=== PATIENT | female | born 1950 | race Caucasian/White ===

== ENCOUNTER 2024-06-18 15:00 | Inpatient (IN) | payer MEDICARE, OTHER ==
[~2024-06-18] VITALS: Ht 152.4 cm; Wt 59.4 kg
[2024-06-18] MEDS ORDERED: MEMA10TA PO (15:27)
[2024-06-18] MEDS ORDERED: DONE10TA11 PO (15:27)
[2024-06-18] MEDS ORDERED: ROSU10TA2 PO (15:27)
[2024-06-18 15:28] LABS: BASOPHILS # (AUTO) 0.1 K/UL (0.0-0.2); BASOPHILS % (AUTO) 0.9 % (0.0-2.0); EOSINOPHILS # (AUTO) 0.3 K/uL (0.0-0.7); EOSINOPHILS % (AUTO) 3.3 % (0.0-7.0); HEMOGLOBIN 14.5 g/dL (10.9-14.3); LYMPHOCYTES # (AUTO) 2.5 K/uL (0.8-4.8); LYMPHOCYTES % (AUTO) 25.9 % (20.5-51.5); MEAN CORPUSCULAR HEMOGLOBIN 30.9 uug (24.7-32.8); MEAN CORPUSCULAR HGB CONC 33 g/dL (32.3-35.6); MONOCYTES # (AUTO) 0.9 K/uL (0.1-1.30); MONOCYTES % (AUTO) 8.9 % (0.0-11.0); NEUTROPHILS # (AUTO) 5.9 K/uL (1.8-8.9); PLATELET COUNT (AUTO) 205 K/uL (179-408); RED BLOOD CELL COUNT(AUTO) 4.68 MIL/uL (3.63-4.92); WHITE BLOOD COUNT (AUTO) 9.6 K/uL (3.8-11.8)
[2024-06-18 15:51] LABS: ETHANOL < 3 MG/DL (0-10)
[2024-06-18 15:56] LABS: *BLOOD, URINE NEGATIVE (NEGATIVE); *CLARITY,URINE CLEAR (CLEAR); *COLOR,URINE YELLOW (YELLOW); *KETONES,URINE TRACE (NEGATIVE); *PROTEIN,URINE TRACE (NEGATIVE); *UROBILINOGEN,URINE 0.2 E.U./dl (NORMAL); LEUKOCYTE ESTERASE ,URINE TRACE (NEGATIVE); NITRITE, URINE NEGATIVE (NEGATIVE); PH,URINE 5.5 (5.0-8.0); UGLUCOSE NEGATIVE (NEGATIVE)
[2024-06-18 16:00] LABS: DIFFERENTIAL COMMENT 1
[2024-06-18 16:01] LABS: *BILIRUBIN,URIN 1+ (NEGATIVE)
[2024-06-18 16:05] LABS: ALANINE AMINOTRANSFERASE 84 U/L (14-59); ALBUMIN 3.9 g/dL (3.4-5.0); ALKALINE PHOSPHATASE 194 U/L (50-136); ASPARTATE AMINOTRANSFERASE 47 U/L (15-37); BILIRUBIN,DIRECT 0.3 mg/dL (0.0-0.2); CALCIUM 9.9 mg/dL (8.5-10.1); CARBON DIOXIDE 25 mmol/L (21-32); CHLORIDE 104 mmol/L (98-107); CREATININE 0.8 mg/dL (0.6-1.3); GLUCOSE 85 mg/dL (74-106); POTASSIUM 3.9 mmol/L (3.5-5.1); SODIUM SERUM 141 mmol/L (136-145); TOTAL PROTEIN, SERUM 7.7 g/dL (6.4-8.2); UREA NITROGEN, BLOOD 15 mg/dL (7-18)
[2024-06-18 16:06] LABS: ACETAMINOPHEN < 2.0 ug/mL (10-30)
[2024-06-18 16:09] LABS: BACTERIA,URINE MODERATE /HPF (NONE SEEN); SQUAMOUS EPITHELIAL CELL,UR MODERATE /HPF (NONE SEEN)
[2024-06-18 16:10] LABS: MUCUS,URINE MANY /LPF (0-FEW)
[2024-06-18 16:16] LABS: *AMPHETAMINE, URINE NEGATIVE (NEGATIVE); *BARBITURATE, URINE NEGATIVE (NEGATIVE); *BENZODIAZEPINE, URINE NEGATIVE (NEGATIVE); *CANNABINOID, URINE NEGATIVE (NEGATIVE); *COCCAINE, URINE NEGATIVE (NEGATIVE); *OPIATE, URINE NEGATIVE (NEGATIVE); *PHENCYCLIDINE SCREEN,URINE NEGATIVE (NEGATIVE); FENTANYL, URINE NEGATIVE (NEGATIVE)
[2024-06-18] MEDS: CEphaleXIN 500 MG CAPSULE PO ONE (17:15)
[2024-06-18] MEDS ORDERED: LORAZEPAM 1 MG TABLET ONE (21:18)
[2024-06-18] MEDS: LORAZEPAM 0.5 MG TABLET PO ONE (21:19)
[2024-06-18 22:00] VITALS: BP 148/70; TEMP 98.1; O2SAT 98
[2024-06-18] MEDS ORDERED: MAGNESIUM HYDROXIDE 30 ML LIQUID UDC PO PRN (22:30)
[2024-06-18] MEDS ORDERED: ACETAMINOPHEN 325 MG TABLET PO PRN (22:30)
[2024-06-18] MEDS ORDERED: ZOLPIDEM 5 MG TABLET PO PRN (22:30)
[2024-06-18] MEDS ORDERED: MAG HYDROX/AL HYDROX/SIMETH 30 ML LIQUID UDC PO PRN (22:30)
[2024-06-18] MEDS ORDERED: LORAZEPAM 1 MG TABLET PO PRN ×2 (22:30)
[2024-06-18] MEDS: BLOOD SUGAR DIAGNOSTIC 1 EACH STRIP VI ONE (23:26)
[2024-06-19 08:08] VITALS: BP 121/46; TEMP 98; O2SAT 98
[2024-06-19] MEDS ORDERED: LORAZEPAM 1 MG TABLET PO PRN (09:30)
[2024-06-19 15:15] VITALS: BP 115/55; TEMP 98.6; O2SAT 98
[2024-06-19 20:00] VITALS: BP 136/71; TEMP 97.9; O2SAT 98
[2024-06-19] MEDS: CEphaleXIN 500 MG CAPSULE PO SCH (20:45)
[2024-06-19] MEDS: DONEPEZIL 10 MG TABLET PO SCH (20:45)
[2024-06-19] MEDS: MEMANTINE HCL 10 MG TABLET PO SCH (20:45)
[2024-06-19] MEDS: QUETIAPINE FUMARATE 25 MG TABLET PO SCH (20:45)
[2024-06-19] MEDS: ATORVASTATIN 20 MG TABLET PO SCH (20:45)
[2024-06-19] MEDS ORDERED: ATORVASTATIN 20 MG TABLET PO SCH (21:00)
[2024-06-19] MEDS: ZOLPIDEM 5 MG TABLET PO PRN (21:45)
[2024-06-20 08:11] VITALS: BP 93/60; TEMP 98; O2SAT 98
[2024-06-20] MEDS ORDERED: Medication Not On Formulary EA (Rosuvastatin Calcium (Crestor) 1 TAB) PO SCH (09:00)
[2024-06-20 15:30] VITALS: BP 135/53; TEMP 98; O2SAT 98
[2024-06-20 20:00] VITALS: BP 153/50; TEMP 98; O2SAT 99
[2024-06-21 08:05] VITALS: BP 147/51; TEMP 98.2; O2SAT 98
[2024-06-21 15:04] VITALS: BP 138/60; TEMP 98.2; O2SAT 98
[2024-06-21 20:00] VITALS: BP 152/57; TEMP 98.1; O2SAT 98
[2024-06-22 07:50] VITALS: BP 142/66; TEMP 98.3; O2SAT 98
[2024-06-22 16:10] VITALS: BP 126/57; TEMP 98; O2SAT 98
[2024-06-22 20:00] VITALS: BP 149/47; TEMP 97.9; O2SAT 97
[2024-06-23 08:27] VITALS: BP 142/55; TEMP 97.7; O2SAT 99
[2024-06-23 16:18] VITALS: BP 134/54; TEMP 98; O2SAT 98
[2024-06-23 21:32] VITALS: BP 130/63; TEMP 98; O2SAT 98
[2024-06-24 08:33] VITALS: BP 157/74; TEMP 97.6; O2SAT 99
== END 2024-06-24 14:15 | DRG 885 ==
LOC: ER 15:00 → GPS 21:16
PROVIDERS: ADMIT Psychiatry & Neurology Psychiatry; ATTEND Nurse Practitioner Acute Care
DX: F29 Unspecified psychosis not due to a substance or known physiological condition (principal); F03.918 Unspecified dementia, unspecified severity, with other behavioral disturbance; N39.0 Urinary tract infection, site not specified; Z91.83 Wandering in diseases classified elsewhere; D64.9 Anemia, unspecified; E78.5 Hyperlipidemia, unspecified; R74.01 Elevation of levels of liver transaminase levels; F25.9 Schizoaffective disorder, unspecified; E11.9 Type 2 diabetes mellitus without complications; Z79.899 Other long term (current) drug therapy
CPT/HCPCS: 36415; 70450; 71045; 84443; 85025; 93005; G0480